=== PATIENT | male | born 1975 | race Caucasian/White ===

== ENCOUNTER 2018-12-10 19:06 | Emergency (ER) | payer OTHER ==
[~2018-12-10] VITALS: Ht 182.9 cm; Wt 99.8 kg
[2018-12-10] MEDS ORDERED: FLEXERIL PO (20:35)
[2018-12-10] MEDS ORDERED: IBUPROFEN 400400 M2 PO (20:35)
[2018-12-10 20:50] VITALS: BP 131/85
== END 2018-12-10 20:52 | disposition home or self-care (01) ==
LOC: ER 19:06
DX: M54.2 Cervicalgia (principal); M25.532 Pain in left wrist; Z88.6 Allergy status to analgesic agent; Z91.013 Allergy to seafood; V89.2XXA Person injured in unspecified motor-vehicle accident, traffic, initial encounter; Y93.89 Activity, other specified; Y92.89 Other specified places as the place of occurrence of the external cause; Y99.8 Other external cause status